=== PATIENT | male | born 1985 | race Caucasian/White ===

== ENCOUNTER 2018-05-12 11:32 | Inpatient (IN) ==
[2018-05-12] MEDS ORDERED: Aluminum/Magnesium/Simethacone Susp 30 ML UDC PO PRN (22:26)
[2018-05-12] MEDS ORDERED: Acetaminophen 325 MG Tablet PO PRN (22:26)
[2018-05-12 22:28] VITALS: PULSE 62; RESP 17
[2018-05-13 06:23] VITALS: BP 105/67; TEMP 98.2; O2SAT 98
[2018-05-13] MEDS ORDERED: Influenza (Quadrivalent) Vaccine 0.5 ML Syringe IM ONE (09:00)
--- NOTE | 2018-05-13 14:13 | P.HPPSY ---
Provisional Diagnosis Admission Date: May 12, 2018 18:45 Dysthymic disorder Competence Certification of Person's Competence To Provide Express and Informed Consent I have personally examined Felix Fofana, a person being served at [facility] on, May 13, 2018 1403. Express and informed consent means consent voluntarily given in writing, by a competent person, after sufficient explanation and disclosure of the subject matter involved to enable the person to make a knowing and willful decision without any element of force, fraud, deceit, duress, or other form of constraint or coercion. This person is 18 years of age or older, is not now known to be incompetent to consent to treatment with a guardian advocate, and does not have a health care surrogate or proxy currently making medical treatment decisions. I have found this person to be one of the following: [] Competent to provide express and informed consent, as defined above, for voluntary admission to this facility and is competent to provide express and informed consent for treatment. He/she has the consistent capacity to make well reasoned, willful, and knowing decisions concerning his or her medical or mental health treatment. The person fully and consistently understands the purpose of the admission for examination/placement and is fully capable of personally exercising all rights assured [place] [] Incompetent to provide express and informed consent to voluntary admission, and this is incompetent to provide express and informed consent to treatment. The person must be transferred to involuntary status and a petition for a guardian advocate filed with the Circuit Court. [] Refusing to provide express and informed consent to voluntary admission but is competent to provide express and informed consent for treatment. The person must be discharged or transferred to involuntary status. Form shall be completed within 24 hours of a person's arrival at the receiving facility and filed in the clinical record of each person: 1. Admitted on a voluntary basis 2. Permitted to provide express and informed consent to his/her own treatment 3. Allowed to transfer from involuntary to voluntary status 4. Prior to permitting a person to consent to his or her own treatment after having been previously found incompetent to consent to treatment. History of Present Illness Capacity: Has capacity Chief Complaint: Depressed anxious mood History of Present Illness: May 13, 2018 HPI: The patient gives a long history of depressed mood and anxiety. He also complains that at times he has been anorectic and at times feels like he does not want to live. Patient however denies that he has any specific plan about how he would go about harming himself. Rather, he assures me that he is not suicidal. Patient is a 32-year-old male presenting with depressed mood and vague comments that were interpreted to mean a less vague intent to harm himself. Patient has a long history with more than 5 psychiatric admissions going back to age 13. There has never been a suicide attempt except one he claims he made at age 13 for which she tried to electrocute himself by sticking his finger in a light socket. He said the shock threw him across the room. Patient is interested in being diagnosed ASD and is disappointed that myself and another psychiatrist have informed him that he is not autistic. He counters psychiatrist conclusions with "there are a myriad of types of autism. When presented with the list of symptoms that might be an indication the patient has no positive symptomatology other than disturbed interpersonal relationships which apparently has many. Social history the patient mostly grew up in [place], but came to [place] from [place] sometime in the past 2 years. He now plans to return to the [place] where he feels he can get better psychiatric care. Social history the patient grew up with a mother who he does not know is alive today because of her long history of substance abuse and neglect of others. Patient claims that there are depression illnesses on his paternal side with both his father and grandfather having depression in addition to substance abuse. - Inpatient Certification I certify that the inpatient services were ordered in accordance with Medicare regulations governing the order. This includes certification that hospital inpatient services are reasonable and necessary and in the case of services not specified as inpatient-only under 42 CFR 419.22(n), that they are appropriately provided as inpatient services in accordance to with the 2-midnight benchmark under 43 CFR 412.3(e) I certify that inpatient psychiatric hospital services are medically necessary. Evaluation and treatment and/or diagnostic testing are expected to improve the patient's condition. The patient needs on a daily basis, active treatment furnished directly by or requiring the supervision of inpatient psychiatric facility personnel. Estimated Total Length of Stay (Days): 2 Review of Systems May 13, 2018 patient is complained of depression and anxiety of a chronic unrelenting nature that he feels is been inappropriately treated in the past. PMFSH - History History Provided By: Patient - Tobacco History Second Hand Smoke Exposure: No Tobacco Use In Past 30 Days: Yes Smoking Status: Current every day smoker Tobacco Type: Cigarettes - Alcohol History How Often Do You Have a Drink Containing Alcohol: 2 to 3 times a week - Substance Use History Substance History: No History of Abuse - Travel History Recent Travel in the [place] Within the Last 8 Weeks: No Recent Travel Out of the Country Within the Last 8 Weeks: No - Immunization History Tetanus Immunization: Unsure Hx Influenza Vaccine This Season: No Medications and Allergies Active Medications: Active Medications Acetaminophen (Tylenol) 650 mg PO Q4H PRN PRN Reason: PAIN 1-5, TEMP > 101 Al Hydrox/Mg Hydrox/Simethicone (Mag-Al Plus Susp Liq) 30 ml PO Q6H PRN PRN Reason: DYSPEPSIA Al Hydroxide/Mg Hydroxide (Milk Of Magnesia Liq) 30 ml PO DAILY PRN PRN Reason: CONSTIPATION Diphenhydramine HCl (Benadryl) 50 mg PO HS PRN PRN Reason: INSOMNAI Diphenhydramine HCl (Benadryl Inj) 50 mg IM HS PRN PRN Reason: INSOMNIA Nicotine (Habitrol 21 Mg Patch.24 Hr) 1 patch T-DERMAL DAILY [facility] Last Admin: 05/13/18 10:27 Dose: 1 patch Patch Removal (Remove Old Patch) 1 each T-DERMAL HS [facility] Allergies Allergy/AdvReac Type Severity Reaction Status Date / Time No Known Allergies Allergy Verified 05/12/18 22:01 Exam Vital signs: Vital Signs 05/12/18 18:50 05/13/18 06:00 Temperature 97.7 F 98.2 F Pulse Rate 62 62 Respiratory Rate 17 17 Blood Pressure 121/65 105/67 Pulse Oximetry 99 98 Intake & Output 05/12/18 05/13/18 05/13/18 18:59 06:59 18:59 Weight 58 kg Other: Date of Last Bowel Movement 05/10/18 Weight On Admission 58 kg Mental Status Examination Appearance: Appropriate Consciousness: Alert Orientation: x4 Motor Activity: Normal gait Speech: Unremarkable Language: Adequate Fund of Knowledge: Adequate Attention and Concentration: Adequate Memory: Unremarkable Mood: Sad, Oppositional, Anxious Affect: Sad, Anxious Thought Process & Associations: Intact Thought Content: Obsessions (Believes he is autistic) Hallucination Type: None Delusion Type: None Assessment and Plan - Plan Plan: Estimated LOS: [] days May 13, 2018 patient is referred to his [facility] in [facility] for follow-up outpatient treatment of his mood disorder. Justification for Continued Inpatient Stay: May 13, 2018 patient can be treated at a lower level of care and will be discharged.
--- NOTE | 2018-05-13 14:17 | P.DSPSY ---
Psychiatry Discharge Summary Inpatient Psychiatric care?: Yes Advance Directives: No Mental Health Advance Directive: No Health Care Proxy: No - Admission Admission Date: May 12, 2018 18:45 Brief History: May 13, 2018 HPI: The patient gives a long history of depressed mood and anxiety. He also complains that at times he has been anorectic and at times feels like he does not want to live. Patient however denies that he has any specific plan about how he would go about harming himself. Rather, he assures me that he is not suicidal. Patient is a 32-year-old male presenting with depressed mood and vague comments that were interpreted to mean a less vague intent to harm himself. Patient has a long history with more than 5 psychiatric admissions going back to age 13. There has never been a suicide attempt except one he claims he made at age 13 for which she tried to electrocute himself by sticking his finger in a light socket. He said the shock threw him across the room. Patient is interested in being diagnosed ASD and is disappointed that myself and another psychiatrist have informed him that he is not autistic. He counters psychiatrist conclusions with "there are a myriad of types of autism. When presented with the list of symptoms that might be an indication the patient has no positive symptomatology other than disturbed interpersonal relationships which apparently has many. Social history the patient mostly grew up in [place], but came to [place] from [place] sometime in the past 2 years. He now plans to return to the [place] where he feels he can get better psychiatric care. Social history the patient grew up with a mother who he does not know is alive today because of her long history of substance abuse and neglect of others. Patient claims that there are depression illnesses on his paternal side with both his father and grandfather having depression in addition to substance abuse. Tobacco Use In Past 30 Days: Yes How Often Do You Have a Drink Containing Alcohol: 2 to 3 times a week Hospital Course: May 13, 2018: Patient evaluated and felt appropriate for outpatient psychotherapy and possible antidepressant medications. - Discharge Discharge Date: 05/13/18 Discharge Disposition: Home - Discharge Instructions Discharge Diet: Regular Diet Activities You Can Perform: Regular- No Restrictions - Discharge Time > 30 minutes Mental Status Examination Appearance: Appropriate Consciousness: Alert Orientation: x4 Motor Activity: Normal gait Speech: Unremarkable Language: Adequate Fund of Knowledge: Adequate Attention and Concentration: Adequate Memory: Unremarkable Mood: Sad, Oppositional, Anxious Affect: Sad, Anxious Thought Process & Associations: Intact Thought Content: Obsessions (Believes he is autistic) Hallucination Type: None Delusion Type: None Discharge/Advance Care Plan Your Health Problems Are: Anxiety - Results Vital Signs: Last Vital Signs Temp 98.2 F 05/13/18 06:00 Pulse 62 05/13/18 06:00 Resp 17 05/13/18 06:00 BP 105/67 05/13/18 06:00 Pulse Ox 98 05/13/18 06:00 Lab Results: None done at this facility patient accompanied by extensive laboratory workup which showed no significant findings relative to the chief complaint. Summary of Procedures: None Pending Results: None - Medications Number of antipsychotic medications at discharge: 0 - Discharge Care Plan Goals to Promote Your Health: * To prevent worsening of your condition and complications * To maintain your health at the optimal level Directions to Meet Your Goals: Take your medications as prescribed Follow your dietary instruction Follow activity as directed Keep your appointments as scheduled Take your immunizations and boosters as scheduled If your symptoms worsen call your PCP, if no PCP go to Urgent Care Center or Emergency Room For 18/11 questions related to your inpatient stay or results of tests pending at discharge, please contact Dr. Satya Ruggiero MD at Smoking is Dangerous to Your Health. Avoid second hand smoking
== END 2018-05-13 15:10 | disposition home or self-care (01) | DRG 881 ==
LOC: H260 18:45
PROVIDERS: ADMIT Psychiatry & Neurology Child & Adolescent Psychiatry; ATTEND Psychiatry & Neurology Child & Adolescent Psychiatry
CPT/HCPCS: Q2038